=== PATIENT | female | born 1935 | race Native Hawaiian/Other Pacific Islander ===

== ENCOUNTER 2017-07-16 14:26 | Outpatient (CLI) | payer OTHER, BC ==
[2017-07-16] MEDS ORDERED: ALPR0.5T24 PO (14:55)
[2017-07-16] MEDS ORDERED: ISOSORBIDE DINI40 M1 PO (14:57)
[2017-07-16] MEDS ORDERED: SOTA80TA2 PO (14:57)
[2017-07-16] MEDS ORDERED: ELIQUIS2.5 MG OR (15:00)
[2017-07-16] MEDS ORDERED: SIMV20TA2 PO (15:00)
[2017-07-16] MEDS ORDERED: DONE5TAB PO (15:01)
[2017-07-16] MEDS ORDERED: PROTONIX20 MG PO (15:02)
[2017-07-16] MEDS ORDERED: COZAAR25 MG PO (15:02)
== END 2017-07-16 14:38 | disposition short-term general hospital (02) ==
LOC: AMB 14:26
DX: R07.89 Other chest pain (principal)
CPT/HCPCS: A0425; A0429

== ENCOUNTER 2017-07-16 14:41 | Emergency (ER) | payer OTHER, BC ==
[~2017-07-16] VITALS: Ht 165.1 cm; Wt 54.9 kg
[2017-07-16] MEDS ORDERED: ALPR0.5T24 PO (14:55)
[2017-07-16] MEDS ORDERED: SOTA80TA2 PO (14:57)
[2017-07-16] MEDS ORDERED: ISOSORBIDE DINI40 M1 PO (14:57)
[2017-07-16] MEDS ORDERED: ELIQUIS2.5 MG OR (15:00)
[2017-07-16] MEDS ORDERED: SIMV20TA2 PO (15:00)
[2017-07-16] MEDS ORDERED: DONE5TAB PO (15:01)
[2017-07-16] MEDS ORDERED: COZAAR25 MG PO (15:02)
[2017-07-16] MEDS ORDERED: PROTONIX20 MG PO (15:02)
[2017-07-16 15:38] LABS: PLATELET COUNT 190 K/uL (152-353)
[2017-07-16 15:47] LABS: POTASSIUM 3.5 mmol/L (3.6-5.2); SODIUM 140 mmol/L (136-145)
[2017-07-16 16:13] LABS: PARTIAL THROMBOPLASTIN TIME 17.8 SECONDS (24.5-33.6)
[2017-07-16 16:17] VITALS: BP 154/78; TEMP 98.1
== END 2017-07-16 17:04 | disposition home or self-care (01) ==
LOC: ED 14:41
PROVIDERS: Emergency Medicine
DX: R03.0 Elevated blood-pressure reading, without diagnosis of hypertension (principal)
CPT/HCPCS: 36415; 80053; 81000; 82550; 84484; 85027; 85610; 85730; 93005; 99284